=== PATIENT | male | born 1960 | race American Indian/Alaskan Native ===

== ENCOUNTER → 2022-12-30 | Outpatient (CLI) | payer OTHER, BC ==
[~2022-12-30] VITALS: Ht 172.7 cm; Wt 70.0 kg
[~2022-12-30] MED LIST: CENTRUM MEN'S PO; COZAAR100 MG PO; EYE MULTIVITAM1 EAC1 PO; GLUCOSAMINE & C1 TAB PO; NORVASC 5MG5 MG/TAB PO; OMEGA-3 1000 MG1 CAP PO
== END ==
LOC: CANPRECLI → COL.RAD 12-06 07:30
DX: Z01.89 Encounter for other specified special examinations (principal); R91.1 Solitary pulmonary nodule